=== PATIENT | female | born 1965 | race Hispanic/Latino ===

== ENCOUNTER 2021-09-14 18:25 | Emergency (ER) | payer SELFPAY ==
[~2021-09-14] VITALS: Ht 149.9 cm; Wt 53.5 kg
[2021-09-14] MEDS ORDERED: ANTIVERT25 M1 PO (20:22)
== END 2021-09-14 20:29 | disposition home or self-care (01) ==
LOC: FSED 18:33
DX: R00.2 Palpitations (principal); R42 Dizziness and giddiness; Z88.8 Allergy status to other drugs, medicaments and biological substances; Z86.12 Personal history of poliomyelitis; Z86.2 Personal history of diseases of the blood and blood-forming organs and certain disorders involving the immune mechanism
CPT/HCPCS: 70450; 80053; 81003; 85025; 99283

== ENCOUNTER → 2022-03-02 | Outpatient (CLI) | payer BC ==
[~2022-03-02] MED LIST: ANTIVERT25 M1 PO
== END ==
LOC: RAD 14:59 → EDSTATUS 03-04 10:30
PROVIDERS: ATTEND Internal Medicine Gastroenterology
DX: Z01.810 Encounter for preprocedural cardiovascular examination (principal); R10.13 Epigastric pain; D64.9 Anemia, unspecified
CPT/HCPCS: 93005